=== PATIENT | female | born 1980 | race Caucasian/White ===

== ENCOUNTER 2017-08-26 17:11 | Emergency (ER) | payer BC, OTHER ==
[2017-08-26 17:11] VITALS: BMI 29.2
--- NOTE | 2017-08-26 17:41 | ED PDOC ---
Arrival/HPI - General Time Seen by Provider: 08/26/17 17:20 Historian: Patient - History of Present Illness Narrative History of Present Illness (Text): 08/26/17 17:48 36 y/o female, pmh including htn/hyperlipidemia/dm (poorly controlled DM, last hgba1c 11), nkda, not on any anticoagulant, c/o elevated blood pressure x 5 hours. Pt. stated that she is currently on the amlodipine 5mg po qd for her blood pressure control, check her blood pressure today around 1pm which noted to be systolic 200s and diastolic 100 which she became panic. Pt. also stated that she has been experiencing shortness of breath/dizziness and blurry vision bilaterally for the past 1 week, no numbness or tingling, no night sweat, no rash, no dizziness, no other medical or psychological complaints. Past Medical History - Provider Review Nursing Documentation Reviewed: Yes - Infectious Disease Hx of Infectious Diseases: None - Tetanus Immunization Tetanus Immunization: Unknown - Endocrine/Metabolic Hx Diabetes Mellitus Type 2: Yes - Musculoskeletal/Rheumatological Hx Falls: No - Psychiatric Hx Substance Use: No - Suicidal Assessment Feels Threatened In Home Enviroment: No Family/Social History - Physician Review Nursing Documentation Reviewed: Yes Family/Social History: Unknown Family HX Smoking Status: Never Smoked Hx Alcohol Use: No Hx Substance Use: No Hx Substance Use Treatment: No Allergies/Home Meds Allergies/Adverse Reactions: Allergies No Known Allergies Allergy (Verified 08/26/17 17:41) Home Medications: Home Meds Medication Instructions Recorded Confirmed Insulin Aspart, Recombinant 10 unit SC TID 08/26/17 08/26/17 [Novolog] amLODIPine [Norvasc] 5 mg PO DAILY 08/26/17 08/26/17 Review of Systems - Review of Systems Constitutional: absent: Fatigue, Fevers Eyes: Vision Changes. absent: Photophobia, Eye Pain ENT: absent: Hearing Changes Respiratory: SOB. absent: Cough, Sputum Cardiovascular: absent: Chest Pain Gastrointestinal: absent: Abdominal Pain, Nausea, Vomiting Musculoskeletal: absent: Arthralgias, Myalgias Neurological: Dizziness. absent: Headache, Focal Weakness, Gait Changes, Speech Changes, Facial Droop, Disequilibrium Physical Exam Vital Signs Reviewed: Yes Vital Signs Temp Pulse Resp BP Pulse Ox 08/26/17 19:54 98.2 F 82 18 138/85 98 08/26/17 18:44 82 18 135/87 98 08/26/17 17:36 98.1 F 90 15 150/100 H 100 Temperature: Afebrile Blood Pressure: Hypertensive Pulse: Regular Respiratory Rate: Normal Appearance: Positive for: Well-Appearing, Non-Toxic, Comfortable Pain Distress: None Mental Status: Positive for: Alert and Oriented X 3 - Systems Exam Head: Present: Atraumatic, Normocephalic Pupils: Present: PERRL Extroacular Muscles: Present: EOMI Conjunctiva: Present: Normal, Other (bilateral vision without correction 20/25, lt. eye with correction 20/25 vs. rt. eye with correction 20/25, FREOM without limitation. ) Ears: Present: NORMAL TM, Normal Canal. No: Erythema Mouth: Present: Moist Mucous Membranes Neck: Present: Normal Range of Motion Respiratory/Chest: Present: Clear to Auscultation, Good Air Exchange. No: Respiratory Distress, Accessory Muscle Use Cardiovascular: Present: Regular Rate and Rhythm, Normal S1, S2. No: Murmurs Abdomen: Present: Normal Bowel Sounds. No: Tenderness, Distention, Peritoneal Signs Back: Present: Normal Inspection Upper Extremity: Present: Normal Inspection. No: Cyanosis, Edema Lower Extremity: Present: Normal Inspection. No: Edema Neurological: Present: GCS=15, Speech Normal, Motor Func Grossly Intact, Gait Normal, Memory Normal, Other (normal finger to nose test, normal heel to jimenez test. ) Skin: Present: Warm, Dry, Normal Color. No: Rashes Psychiatric: Present: Alert, Oriented x 3, Normal Insight, Normal Concentration Medical Decision Making ED Course and Treatment: 08/26/17 17:48 -labs -ekg -cxr -CT head -observe and reassess 08/26/17 19:33 -EKG: NSR @ 86 BPM, no ST elevation or depression, no T wave inversion -Chest xray: no active disease -CT head: show no acute intracranial findings -Labs are non-significant except hyperglycemia, negative troponin and negative d -dimer -aspirin 325mg po ordered. -I offered the admission for the patient to be admitted but she refused as she is asymptomatic now, risk and benefits explained and request to sign out against medical advice. YOU SIGNGOUT AGAINST MEDICAL ADVICE. YOU ARE ADVICED TO CONTINUE YOUR MEDICATIONS AT HOME AND FOLLOW UP TO SEE YOUR OWN PMD /NEUROLOGIST/ OPTHALMOLOGIST SOON POSSIBLE, RETURN TO THE ER FOR ANY NEW OR WORSENING SIGNS OR SYMPTOMS. - Lab Interpretations Lab Results: 08/26/17 18:01 08/26/17 18:01 Lab Results 08/26/17 18:01: NT-Pro-B Natriuret Pep 45.2 08/26/17 18:01: D-Dimer, Quantitative 0.38 08/26/17 18:01: WBC 6.7, RBC 4.61, Hgb 13.3, Hct 37.4, MCV 81.1, MCH 28.9, MCHC 35.6, RDW 12.6, Plt Count 248, MPV 8.9, Gran % 54.4, Lymph % (Auto) 36.4 H, [place] % (Auto) 5.4, Eos % (Auto) 3.5, Baso % (Auto) 0.3, Gran # 3.62, Lymph # 2.4 , [place] # 0.4, Eos # 0.2, Baso # 0.02 08/26/17 18:01: Sodium 136, Potassium 4.2, Chloride 101, Carbon Dioxide 27, Anion Gap 12, BUN 22 H, Creatinine 0.9, Est GFR ( Amer) > 60, Est GFR ( Non-Af Amer) > 60, Random Glucose 246 H, Calcium 8.7, Total Bilirubin 0.4, AST 22, ALT 26, Alkaline Phosphatase 57, Lactate Dehydrogenase 350, Total Creatine Kinase 52, Troponin I < 0.01, Total Protein 6.3, Albumin 3.3, Globulin 3.0, Albumin/Globulin Ratio 1.1, Lipase 73 I have reviewed the lab results: Yes Interpretation: Abnormal lab values (glucose 246) - RAD Interpretation Radiology Orders: 08/26/17 17:41 HEAD W/O CONTRAST [CT] Stat CHEST PORTABLE [RAD] Stat CT Head: no acute findings chest x-ray: no acute cardiopulmonary disease Information Systems Security Developer: Radiologist - EKG Interpretation EKG Interpretation (Text): 08/26/17 18:28 NSR @ 86 BPM, no ST elevation or depression, no T wave inversion Interpreted by ED Physician: Yes Type: 12 lead EKG - Medication Orders Current Medication Orders: Discontinued Medications Aspirin (Aspirin) 325 mg PO STAT STA Stop: 08/26/17 18:46 Last Admin: 08/26/17 19:02 Dose: 325 mg Sodium Chloride (Sodium Chloride 0.9%) 1,000 mls @ 999 mls/hr IV .Q1H1M STA Stop: 08/26/17 19:29 Last Admin: 08/26/17 18:34 Dose: 999 mls/hr eMAR Start Stop Document 08/26/17 18:34 IT (Rec: 08/26/17 18:34 IT [id number]) Intravenous Solution Start Date 08/26/17 Start Time 18:34 End Date 08/26/17 End time 19:34 Total Infusion Time 60 NIHSS Scale ([place]) Time Performed: 18:30 - How Severe is the Stoke Baseline Level of Consciousness: 0=Alert LOC to Questions: 0=Both comments correct LOC to commands: 0=Obeys both correctly Best Gaze: 0=Normal Visual: 0=No visual loss Facial: 0=Normal Motor Arm - Left: 0=No drift Motor Arm - Right: 0=No drift Motor Leg - Left: 0=No drift Motor Leg - Right: 0=No drift Limb Ataxia: 0=Absent Sensory: 0=Normal Best Language: 0=No aphasia Dysarthia: 0=Normal articulation Extinction & Inattention (Neglect): 0=Normal, no object Score: 0 Risk Level: No Stroke Risk rTPA Inclusion/Exclusion - Refusal of Treatment Patient Refused Treatment: Yes - Inclusion Criteria for Altepase Patient is 18 years or Older: Yes The Clinical Diagnosis of Ischemic Stroke That is Causing a Potentially Disabling Neurological Deficit: No Time of Onset is Well Established to be Less Than 270 Minute Before Treatment Would Begin: No Risk/Benefit Discussed With Patient/Family Member Present: Yes - Exclusion Criteria for Altepase Uncontrolled Hypertension at Time of Treatment (Systolic BP above 185 or Diastolic BP above 110 mmHg): No Active Internal Bleeding: No Known Bleeding Diathesis Including but Not Limited to: Platelets Below 100,000/ mm,PTT Above 40 sec After Heparin Use, Current Use of Oral Anitcoagulant With INR Greater Than 1.7 or PT Greater Than 15 secs: No Evidence of an Intracranial Hemorrhage: No Evidence of Major Acute Infarct With Signs Greater Than 1/3 MCA Territory: No Suspicion of Subarachnoid Hemorrhage on Pretreatment Evaluation Even if CT Head Negative For Hemorrhage: No - Warning to TPA With Conditions Following Conditions Weighed Against Anticipated Benefit: No - PA / LACE INSPECTOR / Resident Statement /DO has reviewed & agrees with the documentation as recorded. Disposition/Present on Arrival - Present on Arrival Any Indicators Present on Arrival: No History of DVT/PE: No History of Uncontrolled Diabetes: No Urinary Catheter: No History of Decub. Ulcer: No History Surgical Site Infection Following: None - Disposition Have Diagnosis and Disposition been Completed?: Yes Diagnosis: Shortness of breath, Dizziness, Headache Disposition: AGAINST MEDICAL ADVICE Disposition Time: 19:07 Patient Plan: Other Condition: STABLE Additional Instructions: YOU SIGNGOUT AGAINST MEDICAL ADVICE. YOU ARE ADVICED TO CONTINUE YOUR MEDICATIONS AT HOME AND FOLLOW UP TO SEE YOUR OWN PMD /NEUROLOGIST/ OPTHALMOLOGIST SOON POSSIBLE, RETURN TO THE ER FOR ANY NEW OR WORSENING SIGNS OR SYMPTOMS. Referrals: [facility], Incal[facility] Wilkinson, [Non-Staff] - Follow up with primary Stone Maynard MD [Staff Provider] - Follow up with primary Su Bailey MD [Staff Provider] - Follow up with primary Bryan Sanchez MD [Staff Provider] - Follow up with primary Forms: WORK NOTE
[2017-08-26 18:18] LABS: ALB/GLOB RATIO 1.1 (1.1-1.8); ALKALINE PHOSPHATASE 57 U/L (38-126); ALT/SGPT 26 U/L (7-56); AST/SGOT 22 U/L (14-36); BILIRUBIN,TOTAL 0.4 mg/dL (0.2-1.3); BLOOD UREA NITROGEN 22 mg/dL (7-21); CALCIUM 8.7 mg/dL (8.4-10.5); CARBON DIOXIDE 27 mmol/L (21-33); CHLORIDE 101 mmol/L (98-107); GFR AFRICAN-AMERICAN > 60; GLUCOSE,RANDOM 246 mg/dL (70-110); LIPASE 73 U/L (23-300); POTASSIUM 4.2 mmol/L (3.6-5.0); SODIUM 136 mmol/L (132-148); TOTAL PROTEIN 6.3 g/dL (5.8-8.3)
[2017-08-26] MEDS ORDERED: Sodium Chloride 0.9% 1,000 ML IV STA (18:29)
[2017-08-26 18:35] LABS: BASO # 0.02 K/mm3 (0.0-2.0); BASO % 0.3 % (0.0-3.0); EOS # 0.2 (0.0-0.7); EOS % 3.5 % (1.5-5.0); GRAN # 3.62 (1.4-6.5); GRAN % 54.4 % (50.0-68.0); HEMATOCRIT 37.4 % (36.0-48.0); LYMPH # 2.4 (1.2-3.4); LYMPH % 36.4 % (22.0-35.0); MEAN CELL VOLUME 81.1 fl (80.0-105.0); MEAN CORPUSCULAR HEMOGLOBIN 28.9 pg (25.0-35.0); MEAN CORPUSCULAR HGB CONC 35.6 g/dl (31.0-37.0); MEAN PLATELET VOLUME 8.9 fl (7.0-11.0); MONO # 0.4 (0.1-0.6); MONO % 5.4 % (1.0-6.0); RED CELL DISTRIBUTION WIDTH 12.6 % (11.5-14.5); WHITE BLOOD COUNT 6.7 10^3/ul (4.5-11.0)
--- NOTE | 2017-08-26 18:38 | CT ---
PROCEDURE: CT HEAD WITHOUT CONTRAST. HISTORY: dizziness/blurry vision COMPARISON: None available. TECHNIQUE: Axial computed tomography images were obtained through the head/brain without intravenous contrast. Radiation dose: Total exam DLP = 725.84 mGy-cm. This CT exam was performed using one or more of the following dose reduction techniques: Automated exposure control, adjustment of the mA and/or kV according to patient size, and/or use of iterative reconstruction technique. FINDINGS: HEMORRHAGE: No intracranial hemorrhage. BRAIN: No mass effect or edema. Bilateral basal ganglia calcifications. The garay-white matter differentiation appears intact. Please note that MRI with diffusion imaging is more sensitive in the detection of acute ischemic event. VENTRICLES: No hydrocephalus. CALVARIUM: Unremarkable. PARANASAL SINUSES: Unremarkable as visualized. No significant inflammatory changes. MASTOID AIR CELLS: Unremarkable as visualized. No inflammatory changes. OTHER FINDINGS: None. IMPRESSION: No acute intracranial pathology identified.
[2017-08-26 18:41] LABS: TROPONIN I < 0.01 ng/mL
[2017-08-26 18:45] VITALS: PULSE 82; RESP 18; O2SAT 98
[2017-08-26 19:55] VITALS: BP 138/85; TEMP 98.2
--- NOTE | 2017-08-27 07:48 | RAD ---
HISTORY: medical clearance COMPARISON: No prior. FINDINGS: LUNGS: No active pulmonary disease. PLEURA: No significant pleural effusion identified, no pneumothorax apparent. CARDIOVASCULAR: Normal. OSSEOUS STRUCTURES: No significant abnormalities. VISUALIZED UPPER ABDOMEN: Normal. OTHER FINDINGS: None. IMPRESSION: No acute cardiopulmonary disease appreciated this time.
--- NOTE | 2017-08-27 09:15 | CARD ---
APPROVED REPORT EKG Measurement Heart [id number] <Conclusion> Normal sinus rhythm Low voltage lateral precordial leads RAD RVCD NSSTW changes Small inferior q waves
== END 2017-08-26 19:55 | disposition left against medical advice (07) ==
LOC: ED 17:11
DX: R51 Headache (principal); R42 Dizziness and giddiness; R06.02 Shortness of breath; I10 Essential (primary) hypertension; E11.9 Type 2 diabetes mellitus without complications
CPT/HCPCS: 70450; 71010; 80053; 82550; 83615; 83690; 83880; 84484; 85025; 85378; 93005; 96360; 99285; J7040